=== PATIENT | male | born 1950 | race African-American/Black ===

== ENCOUNTER 2017-01-02 09:05 | Day surgery (SDC) | payer OTHER ==
[2017-01-01 13:39] VITALS: BMI 16.9
[2017-01-02] MEDS ORDERED: LIDOCAINE HCL 2% (20ML MULTI-DOSE VIAL) NR ONE (10:34)
[2017-01-02] MEDS ORDERED: PROPOFOL 20 ML ONE ×3 (10:34)
[2017-01-02 14:54] VITALS: BP 113/70; TEMP 97.6
[2017-01-02 15:32] VITALS: PULSE 54
--- NOTE | 2017-01-03 14:38 | PATH ---
Surgical Pathology Report Patient Name: ORI LIN [facility]. Rec. #: [id number] /Age/Gender: 1950 (Age: 66) / M Account: [id number] Location: U-ENDOSCOPY Taken: 01/02/2017 Received: 01/02/2017 Reported: 01/03/2017 Physicians: Elvin Hollingsworth M.D. Specimen(s) Received A: BX PYLORIC CHANNEL STRICTURE B: BX PYLORIC CHANNEL ULCER C: BX ANTRUM D: BX GE JUNCTION E: BX STRICTURE DESCENDING COLON Clinical History Abdominal pain, weight loss, anemia, occult bleeding Hiatal hernia, GERD, gastritis, gastric ulcer, gastric stricture, severe colon diverticuli, stricture in descending colon Final Diagnosis A. STOMACH, PYLORIC CHANNEL STRICTURE, BIOPSY: GASTRIC MUCOSA WITH SEVERE CHRONIC ACTIVE GASTRITIS AND INTESTINAL METAPLASIA. NO DYSPLASIA IDENTIFIED. IMMUNOHISTOCHEMICAL STAIN FOR H. PYLORI IS POSITIVE (MANY). B. STOMACH, ULCER, PREPYLORIC CHANNEL, BIOPSY: GASTRIC MUCOSA WITH SEVERE CHRONIC ACTIVE GASTRITIS AND ULCERATION. IMMUNOHISTOCHEMICAL STAIN FOR H. PYLORI IS POSITIVE (FEW). C. STOMACH, ANTRUM BIOPSY: GASTRIC ANTRAL MUCOSA WITH SEVERE CHRONIC ACTIVE GASTRITIS AND INTESTINAL METAPLASIA. NO DYSPLASIA IDENTIFIED. IMMUNOHISTOCHEMICAL STAIN FOR H. PYLORI IS POSITIVE (MANY). D. GASTROESOPHAGEAL (GE) JUNCTION, BIOPSY: SQUAMOCOLUMNAR MUCOSA WITH MILD CHRONIC INFLAMMATION. NO INTESTINAL METAPLASIA OR DYSPLASIA IDENTIFIED. E. DESCENDING COLON, STRICTURE, BIOPSY: COLONIC MUCOSA WITHOUT SIGNIFICANT PATHOLOGIC FINDINGS. Electronically Signed Luz Zavala M.D. Gross Description A. Received in formalin, labeled "biopsy pyloric channel stricture" are 3 francisco, irregular portions of soft tissue averaging 0.1 cm. in greatest dimension. The specimens are submitted in toto in one cassette. B. Received in formalin, labeled "biopsy ulcer prepyloric channel" is a francisco, irregular portion of soft tissue measuring 0.3 cm. in greatest dimension. The specimen is submitted in toto in one cassette. C. Received in formalin, labeled "biopsy antrum" are 4 francisco, irregular portions of soft tissue ranging from 0.1-0.2 cm. in greatest dimension. The specimens are submitted in toto in one cassette. D. Received in formalin, labeled "biopsy GE junction" are 6 francisco, irregular portions of soft tissue ranging from 0.2-0.4 cm. in greatest dimension. The specimens are submitted in toto in one cassette. E. Received in formalin, labeled "biopsy stricture descending colon" is a francisco, irregular portion of soft tissue measuring 0.6 cm. in greatest dimension. The specimen is submitted in toto in one cassette. 01/02/201701/02/2017
== END 2017-01-02 15:54 | disposition home or self-care (01) ==
LOC: JASU-ENDO 09:05
PROVIDERS: ATTEND Internal Medicine Gastroenterology
PROC: 0DB48ZX Excision of Esophagogastric Junction, Via Natural or Artificial Opening Endoscopic, Diagnostic (ICD-10-PCS; 2017-01-02)
PROC: 0DB78ZX Excision of Stomach, Pylorus, Via Natural or Artificial Opening Endoscopic, Diagnostic (ICD-10-PCS; 2017-01-02)
PROC: 0DB68ZX Excision of Stomach, Via Natural or Artificial Opening Endoscopic, Diagnostic (ICD-10-PCS; 2017-01-02)
PROC: 0DB38ZX Excision of Lower Esophagus, Via Natural or Artificial Opening Endoscopic, Diagnostic (ICD-10-PCS; 2017-01-02)
PROC: 0DBM8ZX Excision of Descending Colon, Via Natural or Artificial Opening Endoscopic, Diagnostic (ICD-10-PCS; principal; 2017-01-02 10:00)
DX: Z12.11 Encounter for screening for malignant neoplasm of colon (principal); R63.4 Abnormal weight loss; R19.5 Other fecal abnormalities; K59.00 Constipation, unspecified; K56.699 Other intestinal obstruction unspecified as to partial versus complete obstruction; K64.8 Other hemorrhoids; K21.0 Gastro-esophageal reflux disease with esophagitis; K44.9 Diaphragmatic hernia without obstruction or gangrene; K22.2 Esophageal obstruction; K25.9 Gastric ulcer, unspecified as acute or chronic, without hemorrhage or perforation; K31.1 Adult hypertrophic pyloric stenosis
CPT/HCPCS: 74270-TC; 88305-TC; 88342-TC

== ENCOUNTER 2018-06-06 04:35 | Day surgery (SDC) | payer OTHER ==
--- NOTE | 2018-06-06 09:23 | HP ---
History & Physical Update - History History: No Change - Physical Physical: No Change - Assessment Assessment: No Change - Plan Plan: No Change (Patient has an incarcerated left inguinal hernia , painful , partially reducible. Plan : repair of incarcerated left inguinal hernia with mesh. No h/o allergy to medications.)
[2018-06-06] MEDS ORDERED: BUPIVACAINE HCL/PF 0.5% (5MG/ML) 10 ML VIAL ONE (09:24)
[2018-06-06] MEDS ORDERED: ROPIVACAINE HCL 0.5% 30ML VIAL ONE (09:28)
[2018-06-06] MEDS ORDERED: MIDAZOLAM HCL 2 MG/2 ML SINGLE DOSE VIAL ONE ×2 (09:29)
[2018-06-06] MEDS ORDERED: fentaNYL CITRATE 250 MCG/5 ML VIAL ONE (09:54)
[2018-06-06] MEDS ORDERED: SUCCINYLCHOLINE CHLORIDE 200 MG/10 ML VIAL ONE (09:57)
[2018-06-06] MEDS ORDERED: PROPOFOL 20 ML ONE (09:57)
[2018-06-06] MEDS ORDERED: ceFAZolin SODIUM 1 GM VIAL ONE (10:10)
[2018-06-06] MEDS ORDERED: ceFAZolin SODIUM 1 GM VIAL IVPB ONE (10:11)
[2018-06-06] MEDS ORDERED: SEVOFLURANE 250 ML BTL ONE (10:13)
[2018-06-06] MEDS ORDERED: DEXAMETHASONE SOD PHOSPHATE 4 MG/1 ML VIAL ONE (10:18)
[2018-06-06] MEDS ORDERED: BUPIVACAINE HCL/PF (5 MG/ML) 30 ML VIAL IJ ONE (10:42)
--- NOTE | 2018-06-06 11:12 | OP ---
Operative Note - Note: Operative Date: 06/06/18 Pre-Operative Diagnosis: Incarcerated left inguinal hernia. Operation: Repair of incarcerated left inguinal hernia with plug and mesh. Findings: Indirect and direct inguinal hernia. Implants: Hernia plug and mesh. Post-Operative Diagnosis: Same as Pre-op Surgeon: Juancho Champion Anesthesiologist/STOCK HANDLER: Margareth Eagle Anesthesia: General Specimens Removed: Indirect hernial sac. Estimated Blood Loss (mls): 5 Operative Report Dictated: Yes
[2018-06-06] MEDS ORDERED: ONDANSETRON 4 MG/2 ML VIAL IVPUSH PRN (11:23)
[2018-06-06] MEDS ORDERED: ACETAMINOPHEN 1000 MG/100 ML VIAL (NON FORMULARY) IVPB ONE ×2 (11:23→11:30)
[2018-06-06] MEDS ORDERED: oxyCODONE HCL 5 MG TABLET PO PRN (11:23)
[2018-06-06] MEDS ORDERED: KETOROLAC TROMETHAMINE 30 MG/1 ML VIAL IM ONE (11:24)
[2018-06-06] MEDS ORDERED: LACTATED RINGERS SOLUTION 1,000 ML IV SCH (11:30)
[2018-06-06] MEDS ORDERED: KETOROLAC TROMETHAMINE 30 MG/1 ML VIAL ONE (11:49)
[2018-06-06] MEDS ORDERED: ACETAMINOPHEN INJECTION 100 ML IVPB ONE (11:49)
[2018-06-06] MEDS ORDERED: ONDANSETRON 4 MG/2 ML VIAL IVPUSH ONE (12:40)
[2018-06-06] MEDS ORDERED: ONDANSETRON 4 MG/2 ML VIAL ONE (12:44)
--- NOTE | 2018-06-06 13:10 | OP ---
DATE OF OPERATION: 06/06/2018 PREOPERATIVE DIAGNOSIS: Incarcerated left inguinal hernia. POSTOPERATIVE DIAGNOSIS: Incarcerated left inguinal hernia of the direct and indirect type. OPERATIVE PROCEDURE: Repair of left incarcerated inguinal hernia with plug and mesh. SURGEON: Tony Champion MD ANESTHESIA: General anesthesia. OPERATIVE DESCRIPTION: This 67-year-old man presented with pain and swelling in the left groin. Was found to have a left inguinal hernia which was incompletely reducible. He had had repair of a right hernia in the past x2. Consent was obtained. Risks, benefits and complications were discussed with the patient. General anesthesia was administered. The left groin was painted and draped after the side was identified. Timeout was called. He was given a gram of Ancef. Incision was made in the left groin along the skin crease. This was deepened into the skin, subcutaneous tissue, Dodie fascia and external oblique aponeurosis. The ilioinguinal nerve and the iliohypogastric nerve were identified and preserved throughout the procedure. The cord structures were then isolated with a 1/2- inch Soraya drain at the level of the pubic tubercle. The patient had a wide internal ring and a large direct hernia. The cord structures were then by incising the external and internal spermatic muscle and fascia. There was a large indirect hernial sac which was free from the rest of the cord structures all the way down toward the internal ring. The contents of the sac had been reduced. The sac was then transfixed at the level of the internal ring with 2-0 Vicryl sutures. The sac distal to the ligature was then divided and sent to Pathology. The peritoneum was then from the posterior surface of the inguinal canal as well as posterior surface of the abdominal wall circumferentially. This was then returned to the abdominal cavity. A large plug was then inserted through the internal ring and placed behind the transversalis fascia to move the peritoneum cephalad. There was no femoral hernia. The mesh was then anchored to the posterior surface of the transversalis fascia with two 2-0 Prolene sutures, 1 above and medial to the ring and another above and lateral to the ring. The Prolene suture was passed through the internal oblique and transverse abdominis muscle and fascia, brought out through the internal ring, caught the outer leaf of the plug and was then reinserted through the internal ring and brought out through the abdominal wall. Once the 2 sutures were placed the plug was pushed through the internal ring and placed behind the abdominal wall. A large mesh was then placed over the internal oblique muscle. This was anchored at the level of the pubic tubercle with a 2-0 Prolene suture. The inferior leaf of the mesh was placed over the shelving edge of the inguinal ligament and anchored with the VersaTack tacking device. The superior leaf of the mesh was then placed over the internal oblique muscle. and the 2-0 Prolene suture holding the plug behind the abdominal wall was brought through the mesh and a knot was fashioned. The lateral suture was passed through both limbs of the mesh as it came around the cord structures , thus creating a new internal ring. Hemostasis was satisfactory. The repair was adequately done. A few tackers were then placed to place the mesh over the internal oblique muscle. Hemostasis was satisfactory at the completion of the procedure. The wound was irrigated. The external oblique aponeurosis was then approximated with continuous 2-0 Vicryl sutures and a new external ring was created. Marcaine 0.5% was injected into the wound and around the ilioinguinal nerve and iliohypogastric nerve as well as into the skin and subcutaneous tissue. Dodie fascia was approximated with interrupted 3-0 Vicryl sutures. Subcutaneous fat was also approximated with buried interrupted 3-0 Vicryl sutures. Skin was approximated with continuous 4-0 Monocryl sutures in a running subcuticular fashion. Sponge count, instrument count were correct. Estimated blood loss was less than 5 mL. Dermabond was applied across the skin edges. Patient tolerated the procedure well, was extubated and returned to the recovery room in satisfactory and stable condition. Al [id number] cc: MTDD
[2018-06-06 14:10] VITALS: TEMP 97.4
[2018-06-06 15:24] VITALS: BP 111/66; PULSE 62
--- NOTE | 2018-06-09 11:16 | PATH ---
Surgical Pathology Report Patient Name: ORI LIN [facility]. Rec. #: [id number] /Age/Gender: 1950 (Age: 67) / M Account: [id number] Location: [facility] SURGICAL Taken: 06/06/2018 Received: 06/06/2018 Reported: 06/09/2018 Physicians: Tony Champion M.D. Specimen(s) Received LEFT HERNIA SAC Clinical History Left inguinal hernia Final Diagnosis SOFT TISSUE, LEFT INGUINAL, EXCISION: HERNIA SAC. Electronically Signed Riley Prado M.D. Gross Description Received in formalin labeled "hernia sac left inguinal hernia," is a 2.4 x 1.0 x 0.4 cm francisco-hoffmann portion of fibromembranous tissue, consistent with a hernia sac. [employer] sections are submitted in one cassette. /06/06/2018 saudi06/06/2018
== END 2018-06-06 15:25 | disposition home or self-care (01) ==
LOC: JASU-SURG 04:35
PROVIDERS: ATTEND Specialist
PROC: 8E0W0CZ Robotic Assisted Procedure of Trunk Region, Open Approach (ICD-10-PCS; 2018-06-06)
PROC: 0YU60JZ Supplement Left Inguinal Region with Synthetic Substitute, Open Approach (ICD-10-PCS; principal; 2018-06-06 09:30)
DX: K40.30 Unilateral inguinal hernia, with obstruction, without gangrene, not specified as recurrent (principal)
CPT/HCPCS: 88302-TC; 94760; J0131

== ENCOUNTER 2022-09-22 15:39 | Emergency (ER) | payer OTHER ==
[2022-09-22 15:51] VITALS: BMI 15.5
[2022-09-22] MEDS ORDERED: SODIUM CHLORIDE 0.9% 500 ML INFUS.BAG IV ONE ×2 (17:08→17:09)
[2022-09-22] MEDS ORDERED: ACETAMINOPHEN 1000 MG/100 ML BAG IVPB ONE (17:10)
[2022-09-22] MEDS ORDERED: METOCLOPRAMIDE HCL INJECTION 10 MG/2 ML VIAL IVPB ONE (17:12)
[2022-09-22] MEDS ORDERED: METOCLOPRAMIDE HCL INJECTION 10 MG/2 ML VIAL ONE (17:59)
[2022-09-22] MEDS ORDERED: ACETAMINOPHEN INJECTION 100 ML IVPB ONE (18:00)
[2022-09-22 18:45] LABS: BASO % 0.3 % (0-2.0); EOS % 0.1 % (0-4.5); HEMATOCRIT 35.2 % (35.4-49); HEMOGLOBIN 11.7 GM/dL (11.7-16.9); MCHC 33.3 g/dl (32.0-35.9); MEAN CELL VOLUME 90.1 fl (80-96); MONO % 24.7 % (3.8-10.2); NEUT % 61.9 % (42.8-82.8); RDW 13.2 % (11.9-15.9); WHITE BLOOD COUNT 4.8 K/mm3 (4.0-10.0)
[2022-09-22 18:48] LABS: MEAN PLT VOLUME 9.5 fl (7.5-11.1); PLATELET COUNT 80 10^3/uL (134-434)
[2022-09-22 19:04] LABS: POTASSIUM 4.1 mmol/L (3.5-5.1)
[2022-09-22 19:05] LABS: CALCIUM 8.6 mg/dL (8.5-10.1)
[2022-09-22 19:06] LABS: ALBUMIN 3.7 g/dl (3.4-5.0); BLOOD UREA NITROGEN 13.6 mg/dL (7-18); MAGNESIUM 1.8 mg/dL (1.8-2.4)
[2022-09-22 19:09] LABS: CREATININE 0.9 mg/dL (0.55-1.3)
[2022-09-22 19:11] LABS: BILIRUBIN,TOTAL 0.2 mg/dL (0.2-1); TOT PROT 6.9 g/dl (6.4-8.2)
[2022-09-22 19:19] LABS: ANISOCYTOSIS 1+; MACROCYTOSIS 0; TARGET CELLS 1+
[2022-09-22 21:18] VITALS: BP 105/63; PULSE 64; RESP 17; TEMP 98.9
[2022-09-22 21:59] LABS: EPI CELLS 11 /uL (0-25.1); HYALINE CASTS 0 /uL (0-3.1); PH,URINE 5.5 (5.0-8.0); URINE APPEARANCE CLEAR; URINE BACTERIA 60 /uL (0-1359); URINE BILIRUBIN NEGATIVE (NEGATIVE); URINE COLOR YELLOW; URINE GLUCOSE (UA) NEGATIVE (NEGATIVE); URINE KETONE 2+ (NEGATIVE); URINE LEUK ESTERASE NEGATIVE (NEGATIVE); URINE NITRITE NEGATIVE (NEGATIVE); URINE PROTEIN 1+ (NEGATIVE); URINE RBC 45 /uL (0-23.9); URINE UROBILINOGEN 0.2 mg/dL (0.2-1.0); URINE WBC 12 /uL (0-25.8)
== END 2022-09-22 21:15 | disposition home or self-care (01) ==
LOC: JER 15:39
PROC: 3E033NZ Introduction of Analgesics, Hypnotics, Sedatives into Peripheral Vein, Percutaneous Approach (ICD-10-PCS; principal; 2022-09-22)
PROC: 3E033GC Introduction of Other Therapeutic Substance into Peripheral Vein, Percutaneous Approach (ICD-10-PCS; 2022-09-22)
DX: R53.1 Weakness (principal); R51.9 Headache, unspecified; R05.9 Cough, unspecified; R63.0 Anorexia; U07.1 COVID-19
CPT/HCPCS: 0241U-QW; 36415; 71045-TC-FY; 80053; 81003; 83735; 85025; 93005; 93010; 96374; 96375; 99285-25